=== PATIENT | male | born 1960 | race African-American/Black ===

== ENCOUNTER 2016-12-17 19:52 | Emergency (ER) | payer OTHER ==
[~2016-12-17] VITALS: Ht 182.9 cm; Wt 109.0 kg
[~2016-12-17 19:52] MED LIST: MOBIC15 MG PO; NORVASC10 MG PO
[2016-12-17 21:19] LABS: CHLORIDE 107 mEq/L (99-109); POTASSIUM 3.4 mEq/L (3.7-5.4); SODIUM 141 mEq/L (136-147)
[2016-12-17 21:21] LABS: GLUCOSE 171 mg/dL (70-99); HEMATOCRIT 41.8 % (38.0-50.0); MCH 25.9 PG (29.0-34.0); MCHC 31.8 G/DL (30.0-36.0); MCV 81.3 FL (86-99); PLATELET COUNT 117 K/uL (156-360); RBC DIS.WIDTH-CV 14.6 % (11.8-14.6); RBC DIS.WIDTH-SD 43.8 % (39-53); RED BLOOD COUNT 5.14 M/uL (4.00-5.50); WHITE BLOOD COUNT 6.3 K/uL (4.1-10.2)
[2016-12-17 21:22] LABS: ANION GAP 11 MEQ/L (2-14)
[2016-12-17 21:25] LABS: GFR ESTIMATE (CALCULATED) > 59 mL/min/
[2016-12-17 21:26] LABS: UREA NITROGEN (BUN) 11 mg/dL (9-23)
[2016-12-17 21:36] LABS: ADD MIUA? YES; BILIRUBIN LARGE; BLOOD LARGE; COLOR RED ((YELLOW)); GLUCOSE (STRIP) NEGATIVE; KETONES 15; PROTEIN (STRIP) 300; SPECIFIC GRAVITY 1.015 (1.000-1.030); UROBILINOGEN 0.2 MG/DL (0.2-1.0)
[2016-12-17 21:38] LABS: ICTOTEST POSITIVE
[2016-12-17 21:39] LABS: UCUL ADDED? YES
[2016-12-17 22:40] VITALS: BP 130/62
== END 2016-12-17 22:41 | disposition home or self-care (01) ==
LOC: EME 19:52
PROVIDERS: Emergency Medicine
PROC: 0T9B70Z Drainage of Bladder with Drainage Device, Via Natural or Artificial Opening (ICD-10-PCS; principal; 2016-12-17)
DX: R33.9 Retention of urine, unspecified (principal); R31.9 Hematuria, unspecified; E11.9 Type 2 diabetes mellitus without complications; E78.5 Hyperlipidemia, unspecified; I10 Essential (primary) hypertension
CPT/HCPCS: 80048; 81003; 85027; 87086; 99281; 99284

== ENCOUNTER 2016-12-23 23:34 | Emergency (ER) | payer OTHER ==
[~2016-12-23] VITALS: Ht 182.9 cm; Wt 111.0 kg
[2016-12-24 01:51] LABS: HEMATOCRIT 40.1 % (38.0-50.0); MCH 25.8 PG (29.0-34.0); MCHC 31.7 G/DL (30.0-36.0); MCV 81.5 FL (86-99); MEAN PLAT.VOLUME 14.4 uM^3 (9.0-12.4); PLATELET COUNT 122 K/uL (156-360); RBC DIS.WIDTH-CV 14.3 % (11.8-14.6); RBC DIS.WIDTH-SD 42.4 % (39-53); RED BLOOD COUNT 4.92 M/uL (4.00-5.50); WHITE BLOOD COUNT 5.6 K/uL (4.1-10.2)
[2016-12-24 01:57] LABS: ADD MIUA? YES; COLOR RED ((YELLOW))
[2016-12-24 01:58] LABS: BILIRUBIN NEGATIVE; BLOOD LARGE; GLUCOSE (STRIP) NEGATIVE; KETONES NEGATIVE; LEUKOCYTES NEGATIVE; NITRITE NEGATIVE; PROTEIN (STRIP) 30; RED BLOOD CELLS TNTC /HPF (0-5); SPECIFIC GRAVITY 1.015 (1.000-1.030); UCUL ADDED? YES; UROBILINOGEN 0.2 MG/DL (0.2-1.0)
[2016-12-24 02:01] LABS: CHLORIDE 106 mEq/L (99-109); POTASSIUM 3.3 mEq/L (3.7-5.4); SODIUM 138 mEq/L (136-147)
[2016-12-24 02:02] LABS: GLUCOSE 156 mg/dL (70-99)
[2016-12-24 02:04] LABS: ANION GAP 9 MEQ/L (2-14)
[2016-12-24 02:06] LABS: GFR ESTIMATE (CALCULATED) > 59 mL/min/
[2016-12-24 02:07] LABS: UREA NITROGEN (BUN) 10 mg/dL (9-23)
[2016-12-24 03:04] VITALS: BP 153/89
== END 2016-12-24 03:08 | disposition home or self-care (01) ==
LOC: EME 23:34
PROVIDERS: Emergency Medicine
PROC: 0T9B70Z Drainage of Bladder with Drainage Device, Via Natural or Artificial Opening (ICD-10-PCS; principal; 2016-12-23)
DX: R33.9 Retention of urine, unspecified (principal); R31.9 Hematuria, unspecified; I10 Essential (primary) hypertension
CPT/HCPCS: 80048; 81003; 85027; 87077; 87086; 87186; 99281; 99285

== ENCOUNTER 2016-12-24 23:51 | Emergency (ER) | payer OTHER ==
[~2016-12-24] VITALS: Ht 182.9 cm; Wt 110.2 kg
[2016-12-25 01:34] VITALS: BP 175/115
[2016-12-27] MEDS ORDERED: LEVAQUIN250 MG PO (11:20)
== END 2016-12-25 01:51 | disposition home or self-care (01) ==
LOC: EME 23:51
DX: N40.1 Benign prostatic hyperplasia with lower urinary tract symptoms (principal); R33.8 Other retention of urine; T83.098A Other mechanical complication of other urinary catheter, initial encounter; E11.9 Type 2 diabetes mellitus without complications; E78.5 Hyperlipidemia, unspecified; I10 Essential (primary) hypertension
CPT/HCPCS: 99281; 99284

== ENCOUNTER 2016-12-25 06:42 | Emergency (ER) | payer OTHER ==
[~2016-12-25] VITALS: Ht 182.9 cm; Wt 109.4 kg
[2016-12-25 07:59] VITALS: BP 187/113
[2016-12-27] MEDS ORDERED: LEVAQUIN250 MG PO (11:20)
== END 2016-12-25 08:01 | disposition home or self-care (01) ==
LOC: EME 06:42
DX: T83.098A Other mechanical complication of other urinary catheter, initial encounter (principal); Y84.6 Urinary catheterization as the cause of abnormal reaction of the patient, or of later complication, without mention of misadventure at the time of the procedure; N40.0 Benign prostatic hyperplasia without lower urinary tract symptoms; E11.9 Type 2 diabetes mellitus without complications; E78.5 Hyperlipidemia, unspecified; I10 Essential (primary) hypertension
CPT/HCPCS: 99281; 99283

== ENCOUNTER 2016-12-29 08:16 | Inpatient (IN) | payer OTHER ==
[~2016-12-29] VITALS: Ht 182.9 cm; Wt 106.5 kg
[~2016-12-29 08:16] MED LIST changes: +LEVAQUIN250 MG PO
[2016-12-29 09:54] LABS: HEMATOCRIT 38.6 % (38.0-50.0); MCH 25.8 PG (29.0-34.0); MCHC 31.9 G/DL (30.0-36.0); MCV 80.9 FL (86-99); MEAN PLAT.VOLUME 13.8 uM^3 (9.0-12.4); RBC DIS.WIDTH-CV 14.6 % (11.8-14.6); RBC DIS.WIDTH-SD 42.8 % (39-53); RED BLOOD COUNT 4.77 M/uL (4.00-5.50); WHITE BLOOD COUNT 6.8 K/uL (4.1-10.2)
[2016-12-29 09:56] LABS: PLATELET COUNT 176 K/uL (156-360)
[2016-12-29 10:03] LABS: CHLORIDE 108 mEq/L (99-109); POTASSIUM 3.7 mEq/L (3.7-5.4); SODIUM 138 mEq/L (136-147)
[2016-12-29 10:05] LABS: GLUCOSE 195 mg/dL (70-99)
[2016-12-29 10:06] LABS: ANION GAP 12 MEQ/L (2-14)
[2016-12-29 10:09] LABS: GFR ESTIMATE (CALCULATED) > 59 mL/min/; UREA NITROGEN (BUN) 15 mg/dL (9-23)
[2016-12-29 10:20] LABS: INTER. NORMALIZED RATIO 1.1
[2016-12-29 10:22] LABS: PTT 25.7 SEC (25-37)
[2016-12-29 13:10] VITALS: BP 148/76
[2016-12-29 14:35] LABS: HEMATOCRIT 38.3 % (38.0-50.0); MCV 82.4 FL (86-99)
[2016-12-29 14:45] LABS: Estimated Average Glucose 151 mg/dL (70-123); HEMOGLOBIN A1c (GLYCOHEMOGLOB) 6.9 % HGB (Below 5.7)
[2016-12-29 15:45] VITALS: BP 152/78
[2016-12-29 20:10] VITALS: BP 157/87
[2016-12-29 23:15] VITALS: BP 148/85
[2016-12-30 00:16] VITALS: BP 148/85
[2016-12-30 01:12] LABS: POINT-OF-CARE METER ID UU14208750
[2016-12-30 04:38] VITALS: BP 144/80
[2016-12-30 06:51] LABS: HEMATOCRIT 32.4 % (38.0-50.0); MCH 26.7 PG (29.0-34.0); MCHC 32.4 G/DL (30.0-36.0); MCV 82.4 FL (86-99); MEAN PLAT.VOLUME 13.8 uM^3 (9.0-12.4); PLATELET COUNT 158 K/uL (156-360); RBC DIS.WIDTH-SD 45.2 % (39-53); RED BLOOD COUNT 3.93 M/uL (4.00-5.50); WHITE BLOOD COUNT 6.8 K/uL (4.1-10.2)
[2016-12-30 07:11] LABS: ANION GAP 6 MEQ/L (2-14); CHLORIDE 107 MEQ/L (99-109); GFR ESTIMATE (CALCULATED) > 59 mL/min/; GLUCOSE 162 mg/dL (70-99); POTASSIUM 3.6 MEQ/L (3.7-5.4); SAMPLE HEMOLYSIS CHECK 0; SAMPLE ICTERIC CHECK 0; SAMPLE LIPEMIA CHECK 0; SODIUM 141 MEQ/L (136-147); UREA NITROGEN (BUN) 13 mg/dL (9-23)
[2016-12-30 08:51] VITALS: BP 162/89
[2016-12-30 11:13] VITALS: BP 178/94
[2016-12-30] MEDS ORDERED: HYTRIN1 MG PO (11:21)
[2016-12-30] MEDS ORDERED: DITROPAN5 MG PO (11:22)
[2016-12-30 16:28] VITALS: BP 154/83
[2016-12-30 20:34] VITALS: BP 161/94
[2016-12-31 00:06] VITALS: BP 68/43
[2016-12-31 00:23] LABS: POINT-OF-CARE METER ID UU14162508
[2016-12-31 00:26] LABS: BASE EXCESS 0.5 mEq/L (-3 to +3); BICARBONATE 25.4 mEq/L (22-26); CARBOXY HGB 1.3 % (0-5); COMMENTS - BLOOD GASES C+; DEVICE NRB MASK; FI02 100 %; METHEMOGLOBIN 1.3 % (0-1.5); O2 FLOW 15 L/MIN; PCO2 41 mm Hg (35-45); PO2 115 mm Hg (80-100); SITE RR
[2016-12-31 00:27] LABS: TOTAL RESP RATE 20 resp/min
[2016-12-31 00:45] LABS: HEMATOCRIT 33.3 % (38.0-50.0); MCH 26.2 PG (29.0-34.0); MCHC 31.8 G/DL (30.0-36.0); MCV 82.2 FL (86-99); MEAN PLAT.VOLUME 13.3 uM^3 (9.0-12.4); PLATELET COUNT 189 K/uL (156-360); RBC DIS.WIDTH-CV 14.9 % (11.8-14.6); RBC DIS.WIDTH-SD 45.3 % (39-53); RED BLOOD COUNT 4.05 M/uL (4.00-5.50); WHITE BLOOD COUNT 11.4 K/uL (4.1-10.2)
[2016-12-31 00:54] LABS: INTER. NORMALIZED RATIO 1.1; PROTHROMBIN TIME 11.6 SEC (10.2-12.9); PTT 23.5 SEC (25-37)
[2016-12-31 00:57] LABS: CHLORIDE 106 mEq/L (99-109); POTASSIUM 3.4 mEq/L (3.7-5.4); SODIUM 140 mEq/L (136-147)
[2016-12-31 00:59] LABS: GLUCOSE 233 mg/dL (70-99)
[2016-12-31 01:00] LABS: ANION GAP 14 MEQ/L (2-14)
[2016-12-31 01:01] LABS: TOTAL BILIRUBIN 0.6 mg/dL (0.0-1.0)
[2016-12-31 01:03] LABS: ALKALINE PHOSPHATASE 91 IU/L (3-129); GFR ESTIMATE (CALCULATED) > 59 mL/min/
[2016-12-31 01:04] LABS: UREA NITROGEN (BUN) 11 mg/dL (9-23)
[2016-12-31 01:07] LABS: TROP-I INTERPRETATION NEGATIVE; TROPONIN-I < 0.01 ng/mL (0.0-0.30)
[2016-12-31 01:13] VITALS: BP 120/73
[2016-12-31 05:05] VITALS: BP 132/71
[2016-12-31 08:19] LABS: POINT-OF-CARE METER ID UU13113781
[2016-12-31 08:49] VITALS: BP 142/77
[2016-12-31 10:43] LABS: POINT-OF-CARE METER ID UU13113781; POINT-OF-CARE USER ID NUTSLF44
[2016-12-31 12:22] VITALS: BP 144/87
== END 2016-12-31 14:09 | disposition home or self-care (01) | DRG 695 ==
LOC: EME 08:16 → EDOF 10:42 → 2EAST 10:42 → EDOF 10:42 → ENRESERV 10:45 → 2EAST 13:08 → 4EAST 12-30 18:29 → 2EAST 12-30 18:29 → ENRESERV 12-31 00:33 → 4EAST 12-31 01:06
PROVIDERS: Emergency Medicine; Hospitalist; Internal Medicine
PROC: 30233N1 Transfusion of Nonautologous Red Blood Cells into Peripheral Vein, Percutaneous Approach (ICD-10-PCS; principal; 2016-12-29)
DX: R31.0 Gross hematuria (principal); E11.22 Type 2 diabetes mellitus with diabetic chronic kidney disease; I12.9 Hypertensive chronic kidney disease with stage 1 through stage 4 chronic kidney disease, or unspecified chronic kidney disease; N18.9 Chronic kidney disease, unspecified; G93.40 Encephalopathy, unspecified; N40.1 Benign prostatic hyperplasia with lower urinary tract symptoms; R33.9 Retention of urine, unspecified; E78.5 Hyperlipidemia, unspecified; K52.9 Noninfective gastroenteritis and colitis, unspecified; H53.8 Other visual disturbances; R00.1 Bradycardia, unspecified; R42 Dizziness and giddiness; R53.1 Weakness; N32.89 Other specified disorders of bladder; R61 Generalized hyperhidrosis; Z80.42 Family history of malignant neoplasm of prostate
CPT/HCPCS: 36600; 76770; 80048; 80053; 82803; 82948; 83036; 83605; 84484; 85014; 85018; 85027; 85610; 85730; 86850; 86900; 86901; 86920; 93005; 99281; 99285; G0103; G0378; J2270; J7030; J7120; P9016; S0028